=== PATIENT | female | born 1980 | race Caucasian/White ===

== ENCOUNTER 2018-05-20 05:38 | Inpatient (IN) | payer BC ==
[2018-05-20] MEDS ORDERED: Gabapentin 300 MG Cap PO ONE (05:40)
[2018-05-20] MEDS ORDERED: Scopolamine 1.5 MG Transdermal Patch TOP SCH (05:40)
[2018-05-20] MEDS ORDERED: Celecoxib 200 MG Cap PO ONE (05:40)
[2018-05-20] MEDS ORDERED: Acetaminophen 500 MG Tab PO ONE (05:40)
[2018-05-20] MEDS ORDERED: Dextrose 5%-Lactated Ringers 1,000 ML IV SCH (06:15)
[2018-05-20] MEDS ORDERED: Meropenem 500 MG SDV ONE (06:36)
[2018-05-20] MEDS ORDERED: cefOXitin 2 GM in Sodium Chloride 0.9% 50 ML IV ONE (07:25)
[2018-05-20] MEDS ORDERED: Lidocaine 0.4%/D5W 2 GM/500 ML BAG IV SCH (07:45)
[2018-05-20] MEDS ORDERED: Lidocaine 2% 100 MG/5 ML Syringe IVPUSH ONE (07:45)
[2018-05-20] MEDS ORDERED: Ropivacaine 60 ML, Dexamethasone 8 MG, EPINEPHrine 0.4 MG, Sodium Chloride 0.9% 17.6 ML NERVRT SCH ×4 (07:45)
[2018-05-20] MEDS ORDERED: Ketamine 500 MG/5 ML MDV IV SCH (07:45)
[2018-05-20] MEDS ORDERED: Ondansetron 4 MG/2 ML SDV ONE (07:47)
[2018-05-20] MEDS ORDERED: Glycopyrrolate 0.2 MG/ML 5 ML MDV ONE (07:47)
[2018-05-20] MEDS ORDERED: Succinylcholine 200 MG/10 ML MDV ONE (07:47)
[2018-05-20] MEDS ORDERED: Propofol 200 MG/20 ML SDV ONE (07:47)
[2018-05-20] MEDS ORDERED: Neostigmine Methylsulfate 1 MG/ML 5 ML Syringe ONE (07:47)
[2018-05-20] MEDS ORDERED: Dexamethasone 4 MG/ML SDV ONE (07:47)
[2018-05-20] MEDS ORDERED: Rocuronium 50 MG/5 ML Vial ONE (07:47)
[2018-05-20] MEDS ORDERED: fentaNYL 100 MCG/2 ML SDV ONE (07:55)
[2018-05-20] MEDS ORDERED: Ondansetron 4 MG/2 ML SDV IVPUSH ONE (09:28)
[2018-05-20] MEDS ORDERED: Insulin Aspart 100 Units/ML 3 ML Pen SUBCUT ONE (10:15)
[2018-05-20] MEDS ORDERED: diphenhydrAMINE 50 MG/ML SDV IVPUSH PRN (12:00)
[2018-05-20] MEDS ORDERED: Glucagon,Human Recombinant 1 MG Vial IM PRN (12:00)
[2018-05-20] MEDS ORDERED: 50% Dextrose in Water 50 ML Syringe IVPUSH PRN (12:00)
[2018-05-20] MEDS ORDERED: Insulin Aspart 100 Units/ML 3 ML Pen SUBCUT PRN (12:00)
[2018-05-20] MEDS ORDERED: Ondansetron 4 MG/2 ML SDV IVPUSH PRN (12:00)
[2018-05-20] MEDS ORDERED: Labetalol 20 MG/4 ML Syringe IVPUSH PRN (12:00)
[2018-05-20] MEDS ORDERED: hydrOXYzine HCl 100 MG/2 ML SDV IM PRN (12:00)
[2018-05-20] MEDS ORDERED: Metoclopramide 10 MG/2 ML SDV IVPUSH PRN (12:00)
[2018-05-20] MEDS: cefOXitin 2 GM in Sodium Chloride 0.9% 50 ML IV SCH ×2 (13:20→20:34)
[2018-05-20] MEDS: Acetaminophen Soln 650 MG/20.3 ML UD Cup PO SCH ×2 (13:25→20:33)
[2018-05-20] MEDS: Gabapentin 250 MG/5 ML Solution ML 470 ML Bottle PO SCH ×2 (13:34→21:43)
[2018-05-20] MEDS: Pantoprazole 40 MG Vial IVPUSH SCH (13:52)
[2018-05-20] MEDS: MVI, Adult with Vitamin K 10 ML, Thiamine 200 MG, Chromium/Copper/Mang/Selen/Zn 1 ML in... IV SCH ×4 (17:22)
[2018-05-20] MEDS: Heparin Sodium 5,000 Units/ML Vial SUBCUT SCH (17:23)
[2018-05-20] MEDS: Dextrose 5%-Lactated Ringers 1,000 ML IV SCH (23:52)
[2018-05-21] MEDS: cefOXitin 2 GM in Sodium Chloride 0.9% 50 ML IV SCH ×2 (01:42→09:40)
[2018-05-21] MEDS ORDERED: Iohexol 647 MG/ML 50 ML SDV PO STA (02:00)
[2018-05-21] MEDS: Acetaminophen Soln 650 MG/20.3 ML UD Cup PO SCH ×4 (02:04→19:31)
[2018-05-21] MEDS: Heparin Sodium 5,000 Units/ML Vial SUBCUT SCH ×2 (05:40→17:58)
[2018-05-21] MEDS: Dextrose 5%-Lactated Ringers 1,000 ML IV SCH (05:41)
[2018-05-21] MEDS ORDERED: Ondansetron 4 MG Tab.DIS PO PRN (07:03)
[2018-05-21] MEDS ORDERED: Dextrose 5%-Lactated Ringers 1,000 ML IV SCH (07:15)
--- NOTE | 2018-05-21 08:12 | PN ---
DATE OF SERVICE: 05/21/2018 SUBJECTIVE: Elayne is postoperative day #1, her upper GI was normal. Vital signs have been stable and she has been up and ambulating. Blood sugars have been 156 and 144. REVIEW OF SYSTEMS: Remainder of review of systems is negative for any pertinent positives and negatives. OBJECTIVE: GENERAL: Elayne Ruano is a 37-year-old female. She is alert and orientated. VITAL SIGNS: TPR is 98.8, 61, 16, blood pressure 133/76. HEENT: Negative. NECK: Supple. HEART: Regular rate and rhythm. LUNGS: Clear. ABDOMEN: Dressings are dry and intact. Abdominal binder is on. ALF drain has put out 60 mL of a light pink serosanguineous drainage. EXTREMITIES: SCDs are on and there is no peripheral edema. ASSESSMENT: Laparoscopic Bryce-en-Y gastric bypass surgery, liver biopsy, repair of diaphragmatic hernia, morbid obesity, hepatomegaly, and diaphragmatic hernia. Date of surgery is 05/20/2018. PLAN: 1. Decrease IV rate to 100 mL per hour. 2. Step-2 gastric bypass diet with no cereal. 3. Discontinue Accu-Cheks. 4. Lisinopril 10 mg p.o. daily. 5. Celexa 40 mg p.o. daily. 6. Good pulmonary toilet. 7. Dressing off, may shower. 8. Saline lock IV if oral intake adequate. 9. We will evaluate p.r.n. 10.Plan to discharge in a.m. if pain controlled, activity good, and oral intake adequate. Corinna Castro PA-C /[id number]
[2018-05-21] MEDS: Celecoxib 200 MG Cap PO SCH (08:26)
[2018-05-21] MEDS: SCOPOLAMINE PATCH CHECK TOP SCH (08:28)
--- NOTE | 2018-05-21 08:39 | CR ---
UGI wo KUB HISTORY: eval R -Y GBP FINDINGS: After administration of oral contrast, upright views were obtained. Post operative changes gastric bypass. Surgical drains in place. No evidence for leak. Contrast passes freely into proximal small bowel loops. IMPRESSION: No evidence for leak or obstruction.
[2018-05-21] MEDS: Lisinopril 10 MG Tab PO SCH (09:41)
[2018-05-21] MEDS: Citalopram 20 MG Tab PO SCH (09:41)
[2018-05-21] MEDS: Gabapentin 250 MG/5 ML Solution ML 470 ML Bottle PO SCH ×3 (09:41→21:10)
[2018-05-21] MEDS: Pantoprazole 40 MG Vial IVPUSH SCH (14:40)
[2018-05-21] MEDS: MVI, Adult with Vitamin K 10 ML, Thiamine 200 MG, Chromium/Copper/Mang/Selen/Zn 1 ML in... IV SCH ×4 (15:38)
[2018-05-22] MEDS: Acetaminophen Soln 650 MG/20.3 ML UD Cup PO SCH ×2 (01:45→07:52)
[2018-05-22] MEDS: Heparin Sodium 5,000 Units/ML Vial SUBCUT SCH (05:23)
[2018-05-22] MEDS: Celecoxib 200 MG Cap PO SCH (07:52)
[2018-05-22] MEDS: Citalopram 20 MG Tab PO SCH (08:49)
[2018-05-22] MEDS: SCOPOLAMINE PATCH CHECK TOP SCH (08:49)
[2018-05-22] MEDS: Lisinopril 10 MG Tab PO SCH (08:49)
[2018-05-22] MEDS: Gabapentin 250 MG/5 ML Solution ML 470 ML Bottle PO SCH (08:49)
[2018-05-22] MEDS ORDERED: Cyanocobalamin (Vitamin B12) 1,000 MCG/ML SDV IM ONE (09:00)
--- NOTE | 2018-05-22 09:50 | DISCH ---
ADMISSION DIAGNOSES: Morbid obesity, BMI 51; hypertension; anxiety; hyperglycemia; and obstructive sleep apnea. DISCHARGE DIAGNOSES: Laparoscopic Bryce-en-Y gastric bypass surgery, liver biopsy, and repair of diaphragmatic hernia for morbid obesity, hepatomegaly, and diaphragmatic hernia. Date of surgery, 05/20/2018. HISTORY: Elayne Ruano is a 37-year-old female with longstanding history of morbid obesity. After preoperative evaluation and discussion of possible risks and possible complications, she wished to proceed with surgical procedure. HOSPITAL COURSE: Elayne had her surgery on 05/20/2018. She had no operative complications. On postop day #1, her upper GI was normal. Vital signs were stable. She received dietary instructions and oral intake was adequate on a step-2 gastric bypass diet without cereal. On postop day #3, she was able to be discharged to home without any complications. PHYSICAL EXAMINATION: GENERAL: Elayne Ruano is a 37-year-old female. VITAL SIGNS: Height is 5 feet 3 inches, weight is 292 pounds 12.8 ounces, BMI is 51. TPR 98.3, 78, 16. Blood pressure 130/67. HEENT: Negative. NECK: Supple. HEART: Regular rate and rhythm. LUNGS: Clear. ABDOMEN: Incisions look good. ALF drain: At the time of examination, it remains in, will be removed prior to discharge. Abdominal binder has been on. EXTREMITIES: Without peripheral edema. DISPOSITION: Discharged to home. CONDITION: Stable and improving. FOLLOWUP APPOINTMENT: Corinna Castro PA-C, on 05/30/2018 at 10:30 a.m. HOME MEDICATIONS: 1. Tylenol 650 mg liquid or chewable q.6 hours p.r.n. pain. 2. Celebrex 200 mg oral daily. 3. Milk of magnesia 30 mL, take 1 today and 1 tomorrow p.r.n. constipation. 4. Zofran ODT 4 mg q.4 hours p.r.n. nausea, #30. 5. Citalopram 40 mg daily. 6. Lisinopril 10 mg daily. DISCHARGE INSTRUCTIONS: 1. Diet after discharge: Step-2 gastric bypass diet with no cereal. Drink 8 to 10 glasses of water a day. 2. Activity: No lifting greater than 10 pounds for 2 weeks. Other activity, walk 6 times daily, distance and time as tolerated. 3. Driving, do not drive. 4. Shower/bathing: May shower. 5. Notify provider if fever, increased pain, nausea or vomiting. 6. Keep site clean and dry. 7. Wear abdominal binder for 2 weeks and then as tolerated. 8. Use incentive spirometer 10 times every hour while awake for 1 week.
--- NOTE | 2018-05-22 09:50 | OR ---
DATE OF PROCEDURE: 05/20/2018 PREOPERATIVE DIAGNOSIS: Morbid obesity. POSTOPERATIVE DIAGNOSES: 1. Morbid obesity. 2. Marked hepatomegaly. 3. Paraesophageal diaphragmatic hernia. PROCEDURES: 1. Laparoscopic Bryce-en-Y gastric bypass along with gastroenterostomy, (76473). 2. Mykel-Cut needle liver biopsy, ([id number]). 3. Repair of paraesophageal diaphragmatic hernia, (67716). ANESTHESIA: General. 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 Maximino INDICATIONS FOR PROCEDURE: This is a 37-year-old presenting with longstanding morbid obesity and increasingly significant comorbidities. After preoperative evaluation and discussion, she wished to proceed with a gastric bypass procedure. Potential risks including bleeding, infection, leaks from various GI tract closures, problems with bowel obstruction over time as well as possibility of cardiopulmonary, septic, or hemorrhagic complications leading to were discussed, and the patient wishes to proceed. DETAILS OF PROCEDURE: The patient was taken to the operating room and placed in a supine position. After general endotracheal anesthesia was induced, she was converted to a lithotomy position. An orogastric tube was placed and her abdomen was prepped and draped. At 15 cm inferior and 5 cm left of the xiphoid process, a transverse incision was made and the peritoneal cavity entered under direct vision with an Optiview trocar and inflated to 15 mmHg pressure with CO2. The laparoscope was then reinserted. No underlying trocar insertion site injuries were seen. Following this, 5 additional trocars were placed across the upper and mid abdomen and general exploration was undertaken. Bilateral subcostal transverse abdominis plane blocks were then placed using standard solution and direct visualization of the needle tip in the correct plane via the laparoscopic vantage points. The liver was noted to be markedly fatty infiltrated and enlarged roughly 2 to 3 times normal size. Mykel-Cut needle biopsy was obtained from left lobe of the liver. Minimal bleeding from the biopsy sites were controlled with electrocautery. The omentum was then divided in the midline up to the level of the transverse colon. This allowed identification of the small bowel to the ligament of Treitz. Small bowel was then traced out 200 cm distal, at that point it was divided transversely with a JESSICA stapler. Small bowel was then traced out an additional 150 cm where the [id number] enteroenterostomy was accomplished with internal firing of the Endo-JESSICA 60 mm stapler. Common openings were then closed transversely with the same stapler and the angles anastomosed, and mesenteric defect approximated with some 0 Ethibond stitch along with fibrin sealant. The divided end of the Bryce limb was then from the mesentery for a few centimeters, which allowed an antecolic position of the Bryce limb up to the level of the gastroesophageal junction without tension. The liver was then retracted anteriorly. The patient was noted to have a moderate-sized paraesophageal diaphragmatic hernia with prolapse of a portion of gastric fundus, omentum and perigastric fat in the plane anterior to the course of the esophagus. This was reduced. The peritoneum overlying was divided and reflected downward. The hernia was then repaired anteriorly with a series of 0 Ethibond sutures, reinforced with PTFE pledgets. Upon completion of that, attention was taken to formation of the gastric pouch. Gastrointestinal balloon catheter was then inflated to 15 mL and pulled up snugly against the EG junction. The gastric wall over the apex balloon was then marked with electrocautery and the balloon catheter deflated and pulled up from the esophagus. The lesser omental tissue adjacent to the gastric cardia was then incised, allowing dissection of the stomach at that level. The pouch formation was initiated with a transverse firing of the JESSICA stapler at the level of the cauterized gonzalo in the gastric pouch. The pouch was then completed with 2 additional firings of JESSICA staplers up to and through the angle of His. Upon completion of the pouch, both staple lines were noted to be intact. The anvil of a 25- mm EEA stapler was attached to [place] sump type tube and brought down through a small opening in the gastric pouch, allowing the anvil likewise to be pulled down to within the gastric pouch. The divided end of the Bryce limb was then opened and the main body of the EEA stapler was passed several centimeters in the lumen of the small bowel, brought up the anvil, united with it, thus creating a gastrojejunostomy. Upon removal of the stapler, double donuts of mucosa were noted within it. The small bowel was closed off with a vascular staple line. Gastrojejunostomy was reinforced with some 3-0 Vicryl seromuscular stitch along with fibrin sealant. Leak test was accomplished with injection of 120 mL of air in the gastric pouch while submerged in cefoxitin-containing saline solution. No leaks were identified. A single Galileo-Cruz drain was placed adjacent to the gastrojejunostomy, and from there up into the splenic fossa. The trocars were then sequentially removed and the peritoneal cavity deflated. Incision of the skin was closed with 4-0 Vicryl stitch, which was also used to fix the drain. The patient was taken to the recovery room in satisfactory condition. Yunier Beal MD Job #: [id number]
[2018-05-22] MEDS ORDERED: Magnesium Hydroxide 400 MG/5 ML Susp 30 ML Cup PO ONE (10:51)
[2018-05-22] MEDS ORDERED: Pantoprazole 40 MG Delayed-Release Granules 1 Packet PO SCH (11:30)
== END 2018-05-22 12:55 | disposition home or self-care (01) | DRG 403 ==
LOC: JP.SDS 05:38 → JP.SDSSCHI 05:38 → EDSTATUS 08:45 → JP.2SS 09:40
PROVIDERS: ADMIT Surgery; ATTEND Surgery
PROC: 0D164ZA Bypass Stomach to Jejunum, Percutaneous Endoscopic Approach (ICD-10-PCS; principal; 2018-05-20)
PROC: 0FB24ZX Excision of Left Lobe Liver, Percutaneous Endoscopic Approach, Diagnostic (ICD-10-PCS; 2018-05-20)
PROC: 0BQT4ZZ Repair Diaphragm, Percutaneous Endoscopic Approach (ICD-10-PCS; 2018-05-20)
DX: E66.01 Morbid (severe) obesity due to excess calories (principal); Z68.43 Body mass index [BMI] 50.0-59.9, adult; K44.9 Diaphragmatic hernia without obstruction or gangrene; K76.0 Fatty (change of) liver, not elsewhere classified; I10 Essential (primary) hypertension; F41.9 Anxiety disorder, unspecified; R73.9 Hyperglycemia, unspecified; G47.33 Obstructive sleep apnea (adult) (pediatric); Z88.0 Allergy status to penicillin; Z79.899 Other long term (current) drug therapy
CPT/HCPCS: 36415; 74240; 74240-26; 81025; 82962; 83036; 86850; 86900; 86901; 88307; 88313; A9270-GY; C9113; J0171; J0330; J0694; J1100; J1644; J2001; J2185; J2405; J2704; J2710; J2765; J2795; J3010; J3411; J3420; J7030; J7042; J7050; Q9967